=== PATIENT | female | born 1995 | race Caucasian/White ===

== ENCOUNTER 2018-01-17 13:25 | Emergency (ER) | payer BC ==
[2018-01-17 13:56] VITALS: BP 114/68
[2018-01-17] MEDS ORDERED: Ibuprofen ADULT LIQ* 600 MG/30 ML UDC PO ONE (14:13)
--- NOTE | 2018-01-17 14:16 | UC ---
Hand/Wrist HPI - HPI Summary HPI Summary: pt hand a window on a home come down on her L hand. she is c/o ongoing pain and swelling. happened yesterday. - History Of Current Complaint Chief Complaint: UCGeneralIllness Stated Complaint: LEFT HAND COMP Time Seen by Provider: 01/17/18 14:09 Hx Obtained From: Patient Hx Last Menstrual Period: 01/06/18 Onset/Duration: Sudden Onset Pain Intensity: 6 Character Of Pain: Aching Aggravating Factor(s): Movement Alleviating Factor(s): Nothing Associated Signs And Symptoms: Positive: Swelling, Bruising. Negative: Redness , Fever, Weakness, Numbness/Tingling - Allergies/Home Medications Allergies/Adverse Reactions: Allergies Allergy/AdvReac Type Severity Reaction Status Date / Time No Known Allergies Allergy Verified 01/17/18 13:51 Home Medications: Home Medications NK [No Home Medications Reported] 01/17/18 [History Confirmed 01/17/18] PMH/Surg Hx/FS Hx/Imm Hx Previously Healthy: Yes - Surgical History Surgical History: Yes Surgery Procedure, Year, and Place: EAR TUBES - Social History Occupation: Student Lives: Dormitory/Roommates Alcohol Use: Occasionally Substance Use Type: None Smoking Status (MU): Never Smoked Tobacco - Immunization History Vaccination Up to Date: Yes Review of Systems Constitutional: Negative Skin: Negative Eyes: Negative ENT: Negative Respiratory: Negative Cardiovascular: Negative Gastrointestinal: Negative Genitourinary: Negative Motor: Other - pain, swelling, bruising back of left hand Neurovascular: Negative Musculoskeletal: Negative Neurological: Negative Psychological: Negative Is Patient Immunocompromised?: No All Other Systems Reviewed And Are Negative: Yes Physical Exam Triage Information Reviewed: Yes Appearance: Well-Appearing Vital Signs: Initial Vital Signs Temp 98.6 F 01/17/18 13:52 Pulse 92 01/17/18 13:52 Resp 16 01/17/18 13:52 BP 114/68 01/17/18 13:52 Pulse Ox 99 01/17/18 13:52 Vital Signs Reviewed: Yes Eyes: Positive: Conjunctiva Clear ENT: Positive: Normal ENT inspection Neck: Positive: Supple, Nontender, No Lymphadenopathy Respiratory: Positive: Lungs clear, Normal breath sounds Cardiovascular: Positive: RRR, No Murmur Abdomen Description: Positive: Nontender, No Organomegaly, Soft Bowel Sounds: Positive: Present Musculoskeletal: Positive: Other: - L dorsal hand with mild swelling, brusing and tenderness. Fingers have full s/v/m function. Neurological: Positive: Alert Psychological: Positive: Age Appropriate Behavior Skin Exam: Normal Diagnostics - Laboratory Diagnostic Studies Completed/Ordered: xray wet read: sts, no fx - Radiology No standard instances Radiology Interpretation Completed By: Radiologist - STS, NO FX Hand/Wrist Course/Dx - Course Course Of Treatment: no fx or infection - Differential Dx/Diagnosis Provider Diagnoses: Contusion L dorsal hand Discharge - Sign-Out/Discharge Documenting (check all that apply): Discharge - Discharge Plan Condition: Stable Disposition: HOME Patient Education Materials: Skull Fracture in Children (DC), Contusion in Adults (ED) Additional Instructions: FOLLOW UP [facility] 7 DAYS OR SOONER IF WORSE. - Billing Disposition and Condition Condition: STABLE Disposition: HOME
--- NOTE | 2018-01-17 14:36 | RAD ---
INDICATION: Left hand injury. TECHNIQUE: 4 views of the left hand were obtained. FINDINGS: There is soft tissue swelling noted dorsal to the metacarpal bones. No fracture is seen. Joint spaces appear maintained. IMPRESSION: SOFT TISSUE SWELLING, NO FRACTURE IS SEEN.
== END 2018-01-17 14:50 | disposition home or self-care (01) ==
LOC: UCCORT 13:25
DX: S60.222A Contusion of left hand, initial encounter (principal); W20.8XXA Other cause of strike by thrown, projected or falling object, initial encounter; Y92.9 Unspecified place or not applicable
CPT/HCPCS: 99202; A9270-GY; G0463

== ENCOUNTER 2018-12-16 09:12 | Emergency (ER) | payer BC ==
[2018-12-16] MEDS ORDERED: Acetaminophen TAB* 325 MG PO ONE (10:06)
--- NOTE | 2018-12-16 10:26 | UC ---
UC General HPI - HPI Summary HPI Summary: States she has had a subjective fever for the past 2-3 days. +Chills and body aches. +sore throat and H/A. +post nasal drip. No cough or congestion. + nausea but no vomiting. no abdominal pain. No diarrhea. No rash. Drinking fluids - states she was up all night drinking water. PMhx: none Meds: reviewed - History of Current Complaint Chief Complaint: UCRespiratory Stated Complaint: FEVER,ST,CHILLS,FATIGUE,ACHY Time Seen by Provider: 12/16/18 10:05 Hx Last Menstrual Period: 12/04/18 Pain Intensity: 6 - Allergy/Home Medications Allergies/Adverse Reactions: Allergies Allergy/AdvReac Type Severity Reaction Status Date / Time No Known Allergies Allergy Verified 12/16/18 09:59 PMH/Surg Hx/FS Hx/Imm Hx Previously Healthy: Yes - Surgical History Surgical History: Yes Surgery Procedure, Year, and Place: EAR TUBES - Social History Alcohol Use: Occasionally Substance Use Type: None Smoking Status (MU): Never Smoked Tobacco - Immunization History Vaccination Up to Date: Yes Review of Systems All Other Systems Reviewed And Are Negative: Yes Constitutional: Positive: Fever, Chills ENT: Positive: Sore Throat Gastrointestinal: Positive: Nausea Physical Exam Triage Information Reviewed: Yes Appearance: Well-Appearing Vital Signs: Initial Vital Signs Temp 103 F 12/16/18 10:00 Pulse 125 12/16/18 10:00 Resp 22 12/16/18 10:00 BP 116/66 12/16/18 10:00 Pulse Ox 97 12/16/18 10:00 Eye Exam: Normal ENT: Positive: Pharyngeal erythema, TMs normal, Tonsillar swelling Neck: Positive: Supple, Enlarged Nodes @ - anterior cervical chains Respiratory: Positive: Lungs clear, Normal breath sounds Cardiovascular: Positive: No Murmur, Tachycardia Course/Dx - Course Course Of Treatment: This is a 23 yr old with fever, sore throat and body aches. Assessment. Nontoxic appearing. Rapid strep: NEgative. Flu: Negative. [place] studies obtained. Dx: Viral syndrome. Plan. Continue supportive care. Continue tylenol and/or ibuprofen as needed for pain/fever. If symptoms persist or worsen, follow up with PCP or return to urgent care. If mono studies are positive, we will call you for positive results otherwise results are negative. IF positive recommend at least no physical sports for 21 days - Diagnoses Provider Diagnosis: Viral syndrome Discharge - Sign-Out/Discharge Documenting (check all that apply): Patient Departure All imaging exams completed and their final reports reviewed: No Studies - Discharge Plan Condition: Good Disposition: HOME Patient Education Materials: Viral Syndrome (ED) Referrals: No Primary Care Phys,NOPCP [Primary Care Provider] - Additional Instructions: Continue supportive care Continue tylenol and/or ibuprofen as needed for pain/fever If symptoms persist or worsen, follow up with PCP or return to urgent care If mono studies are positive, we will call you for positive results otherwise results are negative. IF positive recommend at least no physical sports for 21 days - Billing Disposition and Condition Condition: GOOD Disposition: Home
[2018-12-16 11:02] LABS: Influenza A Molecular NEGATIVE (Negative); Influenza B Molecular NEGATIVE (Negative)
[2018-12-16 11:13] VITALS: BP 104/79
[2018-12-17 14:28] LABS: EBV Capsid Ag IgG Ab Positive (Negative); EBV Capsid Ag IgM Ab Negative (Negative); Epstein-Barr Nuclear Antigen Positive (Negative)
== END 2018-12-16 11:14 | disposition home or self-care (01) ==
LOC: UCCORT 09:12
DX: B34.9 Viral infection, unspecified (principal); J02.9 Acute pharyngitis, unspecified; R51 Headache; R11.0 Nausea; R09.82 Postnasal drip
CPT/HCPCS: 36415; 86308; 86664; 86665; 87651; 99212; A9270-GY; G0463

== ENCOUNTER 2018-12-17 16:19 | Emergency (ER) | payer BC ==
[2018-12-17 16:35] VITALS: BP 121/69
--- NOTE | 2018-12-17 16:44 | UC ---
Throat Pain/Nasal Adonay HPI - HPI Summary HPI Summary: Patient was seen yesterday for fever or sore throat which she's had since Saturday. Rapid strep and flu were negative. She states she feels worse today with increased sore throat, continued fever and now with white spots on her tonsils. - History of Current Complaint Chief Complaint: UCGeneralIllness Stated Complaint: RECHECK SORE THROAT Time Seen by Provider: 12/17/18 16:38 Hx Obtained From: Patient Hx Last Menstrual Period: 12/04/18 ?: No Onset/Duration: Gradual Onset Severity: Moderate Pain Intensity: 7 Cough: None Associated Signs & Symptoms: Positive: Negative - Epiglottits Risk Factors Epiglottis Risk Factors: Negative - Allergies/Home Medications Allergies/Adverse Reactions: Allergies Allergy/AdvReac Type Severity Reaction Status Date / Time No Known Allergies Allergy Verified 12/16/18 09:59 Home Medications: Home Medications Acetaminophen 650 mg PO Q6H 12/17/18 [History Confirmed 12/17/18] PMH/Surg Hx/FS Hx/Imm Hx Previously Healthy: Yes - Surgical History Surgical History: Yes Surgery Procedure, Year, and Place: EAR TUBES - Social History Occupation: Student Lives: Dormitory/Roommates Alcohol Use: Occasionally Substance Use Type: None Smoking Status (MU): Never Smoked Tobacco - Immunization History Vaccination Up to Date: Yes Review of Systems All Other Systems Reviewed And Are Negative: Yes Constitutional: Positive: Fever Skin: Positive: Negative Eyes: Positive: Negative ENT: Positive: Sore Throat - Continued sore throat which is worse today and patient now has exudate on her tonsils. Rapid strep yesterday was negative, however she states she did not have exudate on her tonsils yesterday. Respiratory: Positive: Negative Cardiovascular: Positive: Negative Gastrointestinal: Positive: Negative Genitourinary: Positive: Negative Motor: Positive: Negative Musculoskeletal: Positive: Negative Neurological: Positive: Negative Psychological: Positive: Negative Is Patient Immunocompromised?: No Physical Exam Triage Information Reviewed: Yes Appearance: Well-Appearing, No Pain Distress, Well-Nourished Vital Signs: Initial Vital Signs Temp 97.6 F 12/17/18 16:33 Pulse 100 12/17/18 16:33 Resp 20 12/17/18 16:33 BP 121/69 12/17/18 16:33 Pulse Ox 99 12/17/18 16:33 Vital Signs Reviewed: Yes Eye Exam: Normal ENT: Positive: Hearing grossly normal, Pharyngeal erythema, Tonsillar swelling, Tonsillar exudate, Uvula midline. Negative: Trismus, Muffled voice Neck: Positive: Supple, Nontender, Enlarged Nodes @ - Left tonsillar lymph node enlargement. Respiratory Exam: Normal Cardiovascular Exam: Normal Abdominal Exam: Normal Bowel Sounds: Positive: Present Musculoskeletal Exam: Normal Neurological Exam: Normal Psychological Exam: Normal Skin Exam: Normal Throat Pain/Nasal Course/Dx - Course Course Of Treatment: Patient has been comfortable here however her exam is more consistent with tonsillitis today. - Differential Dx/Diagnosis Differential Diagnosis/HQI/PQRI: Tonsillitis Provider Diagnosis: Tonsillitis Discharge - Sign-Out/Discharge Documenting (check all that apply): Patient Departure All imaging exams completed and their final reports reviewed: No Studies - Discharge Plan Condition: Fair Disposition: HOME Prescriptions: Amoxicillin PO (*) [Amoxicillin 875 MG (*)] 875 mg PO BID 10 Days #20 tab Patient Education Materials: Tonsillitis (ED) Referrals: No Primary Care Phys,NOPCP [Primary Care Provider] - ERNST NGUYEN [[employer], [employer], OTHER] - Additional Instructions: Increase fluids. Change her toothbrush in 24 hours. May take Tylenol every 4 hours and alternate with Motrin 600 mg every 6-8 hours for fever. [facility] if no improvement in 2 days. - Billing Disposition and Condition Condition: FAIR Disposition: Home
== END 2018-12-17 16:49 | disposition home or self-care (01) ==
LOC: UCCORT 16:19
DX: J03.90 Acute tonsillitis, unspecified (principal)
CPT/HCPCS: 99212; G0463